=== PATIENT | female | born 1970 | race Caucasian/White ===

== ENCOUNTER 2018-11-20 03:25 | Emergency (ER) | payer OTHER ==
[~2018-11-20] VITALS: Ht 154.9 cm; Wt 57.2 kg
[2018-11-20 03:29] VITALS: Ht 154.9 cm; Wt 57.2 kg
[2018-11-20] MEDS ORDERED: KETOROLAC 30 MG INJ IM STA (04:45)
[2018-11-20] MEDS ORDERED: IBUP-1542 PO (05:54)
[2018-11-20] MEDS ORDERED: NITR-58 PO (05:55)
[2018-11-20 06:03] VITALS: BP 90/49; PULSE 64; RESP 18
--- NOTE | 2018-11-20 07:35 | ERD ---
ER Documentation Chief Complaint Chief Complaint ABD PAIN NO N/V/D/C X1DAY HPI 48-year-old female presents with abdominal pain times 1 day. Pain is noted to be in the right upper quadrant, rated 8 out of 10, described as sharp. Patient took some Tylenol at home without relief. She denies any nausea or vomiting. She denies fevers or chills. She denies diarrhea last bowel movement was 1 day ago which was noted to be normal. There is no blood or dark stools noted. Patient has had prior similar symptoms. Past surgical history of 2 C-sections. She still has her gallbladder in. ROS All systems reviewed and are negative except as per history of present illness. Medications Home Meds Active Scripts Nitrofurantoin Monohyd Macrocr* (Macrobid*) 100 Mg Capsr, 100 MG PO BID for uti for 5 Days, #10 CAP Prov:LOGAN ROBLES 11/20/18 Ibuprofen* (Motrin*) 600 Mg Tab, 600 MG PO Q6H PRN for PAIN, #30 TAB Prov:LOGAN ROBLES 11/20/18 Allergies Allergies: Coded Allergies: No Known Allergy (Unverified , 11/28/18) PMhx/Soc Medical and Surgical Hx: pt denies Medical Hx, pt denies Surgical Hx History of Surgery: Yes ( x2) Hx Miscellaneous Medical Probl: Yes (arthritis) Hx Alcohol Use: No Hx Substance Use: No Hx Tobacco Use: No Physical Exam Vitals Vital Signs Date Temp Pulse Resp B/P (MAP) Pulse Ox O2 O2 Flow FiO2 Time Delivery Rate 11/20/18 98.9 64 18 90/49 (63) 99 Room Air 06:03 11/20/18 97.8 82 18 124/58 99 03:29 (80) Physical Exam Const: No acute distress Resp: Clear to auscultation bilaterally Cardio: Regular rate and rhythm, no murmurs Abd: Soft, non distended. Normal bowel sounds, tenderness palpation of the right upper quadrant, no McBurney's point tenderness, no Leong sign, no rebound or guarding noted Skin: No petechiae or rashes Back: No midline or flank tenderness Ext: No cyanosis, or edema Neur: Awake and alert Psych: Normal Mood and Affect Results 24 hrs Laboratory Tests Test 11/20/18 04:55 1/23/19 05:03 White Blood Count 8.4 10^3/ul Red Blood Count 4.96 10^6/ul Hemoglobin 13.9 g/dl Hematocrit 42.8 % Mean Corpuscular Volume 86.3 fl Mean Corpuscular Hemoglobin 28.0 pg Mean Corpuscular Hemoglobin Concent 32.5 g/dl Red Cell Distribution Width 12.1 % Platelet Count 169 10^3/UL Mean Platelet Volume 10.6 fl Immature Granulocytes % 0.400 % Neutrophils % 72.9 % Lymphocytes % 18.4 % Monocytes % 6.4 % Eosinophils % 1.7 % Basophils % 0.2 % Nucleated Red Blood Cells % 0.0 /100WBC Immature Granulocytes # 0.030 10^3/ul Neutrophils # 6.2 10^3/ul Lymphocytes # 1.6 10^3/ul Monocytes # 0.5 10^3/ul Eosinophils # 0.1 10^3/ul Basophils # 0.0 10^3/ul Nucleated Red Blood Cells # 0.0 10^3/ul Urine Color YELLOW Urine Clarity SLIGHTLY CLOUDY Urine pH 5.0 Urine Specific [place] 1.019 Urine Ketones NEGATIVE mg/dL Urine Nitrite NEGATIVE mg/dL Urine Bilirubin NEGATIVE mg/dL Urine Urobilinogen NEGATIVE mg/dL Urine Leukocyte Esterase 3+ Brook/ul Urine Microscopic RBC 4 /HPF Urine Microscopic WBC 60 /HPF Urine Squamous Epithelial Cells FEW /HPF Urine Transitional Epithelial Cells FEW /HPF Urine Bacteria FEW /HPF Urine Mucus FEW /HPF Urine Hemoglobin NEGATIVE mg/dL Urine Glucose NEGATIVE mg/dL Urine Total Protein NEGATIVE mg/dl Sodium Level 143 mmol/L Potassium Level 5.0 mmol/L Chloride Level 102 mmol/L Carbon Dioxide Level 30 mmol/L Anion Gap 11 Blood Urea Nitrogen 13 mg/dl Creatinine 0.67 mg/dl Est Glomerular Filtrat Rate mL/min > 60 mL/min Glucose Level 112 mg/dl Calcium Level 10.0 mg/dl Total Bilirubin 0.9 mg/dl Direct Bilirubin 0.00 mg/dl Indirect Bilirubin 0.9 mg/dl Aspartate Amino Transf (AST/SGOT) 125 IU/L Alanine Aminotransferase (ALT/SGPT) 88 IU/L Alkaline Phosphatase 108 IU/L Total Protein 7.3 g/dl Albumin 4.3 g/dl Globulin 3.00 g/dl Albumin/Globulin Ratio 1.43 Lipase 141 U/L POC Beta HCG, Qualitative NEGATIVE Current Medications Medications Dose Sig/Ravinder Start Time Status Last (Trade) Ordered Route PRN Stop Time Admin Dose Reason Admin Ketorolac 30 mg ONCE STAT 11/20/18 DC 11/20/18 Tromethamine IM 04:45 05:14 (Toradol) 11/20/18 04:47 Procedures/MDM Medical Decision Making: Differential diagnosis includes but not limited to acute gastritis, acute gastroenteritis, appendicitis, cholecystitis, pancreatitis. Patient appeared well on physical exam. Nontoxic appearing. Abdominal examination showed right upper quadrant tenderness. There is no guarding rebound noted. Labs: CBC showed no anemia, no elevated WBC to suggest infection CMP showed no electrolyte abnormalities, there was normal kidney function, mild transaminitis noted. Patient advised to follow with primary care physician. Lipase was normal Urine was negative UA was consistent with a urinary tract infection. Imaging: Gallbladder ultrasound showed gallstones, no biliary duct dilatation, the right kidney and liver were noted to be unremarkable. Patient likely has biliary colic. Patient had normal bilirubin levels. There is low suspicion for an acute abdomen at this point. ED course: Patient was given Toradol. Symptoms improved with treatment. Prescription(s): Patient given prescription for antibiotics for urinary tract infection and ibuprofen. Patient advised follow-up with primary care physician for referral to general surgery for elective cholecystectomy if her pain continues. Patient advised to follow up with PCP in 1-2 days. Patient advised to return to ED for new or worsening symptoms. Patient stable on discharge from the ED. Disclaimer: Inadvertent spelling and grammatical errors are likely due to EHR/dictation software use and do not reflect on the overall quality of patient care. Also, please note that the electronic time recorded on this note does not necessarily reflect the actual time of the patient encounter. Departure Diagnosis: Primary Impression: Biliary colic Additional Impression: UTI (urinary tract infection) Condition: Fair Patient Instructions: Understanding Urinary Tract Infections (UTIs), Biliary Colic With Gallstone (Confirmed) Referrals: [facility] YOU HAVE RECEIVED A MEDICAL SCREENING EXAM AND THE RESULTS INDICATE THAT YOU DO NOT HAVE A CONDITION THAT REQUIRES URGENT TREATMENT IN THE EMERGENCY DEPARTMENT. FURTHER EVALUATION AND TREATMENT OF YOUR CONDITION CAN WAIT UNTIL YOU ARE SEEN IN YOUR DOCTORS OFFICE WITHIN THE NEXT 1-2 DAYS. IT IS YOUR RESPONSIBILITY TO MAKE AN APPOINTMENT FOR FOLOW-UP CARE. IF YOU HAVE A PRIMARY DOCTOR --you should call your primary doctor and schedule an appointment IF YOU DO NOT HAVE A PRIMARY DOCTOR YOU CAN CALL OUR PHYSICIAN REFERRAL HOTLINE AT IF YOU CAN NOT AFFORD TO SEE A PHYSICIAN YOU CAN CHOSE FROM THE FOLLOWING FORMERLY [facility] [address] [facility] [address] [facility] [address] [facility] [address] [facility] [address] [facility]. [facility]. [address] Additional Instructions: Llame al doctor MAANA y mervat sara STEPHAN PARA DENTRO DE 1-2 SANCHEZ.Dgale a la secretaria que nosotros le instruimos hacer esta stephan.Avise o llame si webb condicin se empeora antes de la stephan. Regresa aqui si peor o no mejor. LOGAN ROBLES DO Nov 20, 2018 07:35
== END 2018-11-20 06:04 | disposition home or self-care (01) ==
LOC: FTE 03:25
DX: K80.50 Calculus of bile duct without cholangitis or cholecystitis without obstruction (principal); N39.0 Urinary tract infection, site not specified
CPT/HCPCS: 36415; 76705; 80053; 81001; 81025; 83690; 85025; 96372; J1885; Z7502

== ENCOUNTER 2019-01-27 06:23 | Day surgery (SDC) | payer OTHER ==
[2019-01-27] VITALS (20 sets, daily range): BP systolic 96–117; BP diastolic 53–63; PULSE 66–88; RESP 9–21; Ht 154.9 cm; Wt 54.2 kg
[~2019-01-27] VITALS: Ht 154.9 cm; Wt 54.2 kg
[~2019-01-27 06:23] MED LIST: IBUP-1542 PO; NITR-58 PO
[2019-01-27] MEDS ORDERED: OMEP20CA16 PO (08:00)
[2019-01-27] MEDS ORDERED: BUPIVACAINE 0.5%/EPI (SDV) 30 ML INJ ONE (08:28)
--- NOTE | 2019-01-27 08:40 | PREAC ---
Date/Time of Note Date/Time of Note DATE: 01/27/19 TIME: 08:39 Anesthesia Eval and Record Evaluation Time Pre-Procedure Interview DATE: 01/27/19 TIME: 08:39 Age 49 Sex female NPO: 8 hrs Preoperative diagnosis gallstones Planned procedure lap choly Past Medical History Past Medical History: Includes GI: GERD Surgery & Anesthesia Issues No known issue Meds Anticoagulation: No Beta Erin within 24 hr: No Reason Beta Erin not given: Pt. not on B-Erin Reported Medications Omeprazole* (Omeprazole*) 20 Mg Capsule.dr, 20 MG PO DAILY, #30 CAP 01/27/19 Discontinued Scripts Nitrofurantoin Monohyd Macrocr* (Macrobid*) 100 Mg Capsr, 100 MG PO BID for uti for 5 Days, #10 CAP Prov:ROBLESLOGAN DO 11/20/18 Ibuprofen* (Motrin*) 600 Mg Tab, 600 MG PO Q6H PRN for PAIN, #30 TAB Prov:ROBLESLOGAN MCCANN 11/20/18 Meds reviewed: Yes Allergies Coded Allergies: No Known Allergy (Unverified , 01/27/19) Allergies Reviewed: Yes Labs/Studies Labs Reviewed: Reviewed by anesthesiologist Result Diagram: 01/27/19 0715 01/27/19 0715 Laboratory Tests 01/27/19 07:15 test: Negative Pre-procedure Exam Last vitals Vital Signs Date Temp Pulse Resp B/P (MAP) Pulse Ox O2 O2 Flow FiO2 Time Delivery Rate 01/27/19 97.8 66 16 117/54 99 07:42 (75) Airway: Adequate mouth opening, Adequate thyromental dist Mallampati: Mallampati III Teeth: Normal Lung: Normal Heart: Normal ASA Physical Status ASA physical status: 2 Emergency: None Pre-operative Attestations Prior to commencing anesthesia and surgery, the patient was re-evaluated, there was verification of: *The patient's identity *The results of appropriate recent lab work and preoperative vital signs *The above evaluation not changing prior to induction *Anesthetic plan, risk benefits, alternative and complications discussed with patient/family; questions answered; patient/family understands, accepts and wishes to proceed. FAY STARK DO Jan 27, 2019 08:40
[2019-01-27] MEDS ORDERED: ROCURONIUM 50 MG INJ ONE (08:43)
[2019-01-27] MEDS ORDERED: PROPOFOL 20 ML ONE (08:43)
[2019-01-27] MEDS ORDERED: ROPIVACAINE 0.5 % 30 ML VIAL ONE (08:44)
[2019-01-27] MEDS ORDERED: LIDOCAINE 1% (MDV) 20 ML INJ ONE (08:44)
[2019-01-27] MEDS ORDERED: MIDAZOLAM 1 MG/ML 2 ML INJ ONE (08:44)
[2019-01-27] MEDS ORDERED: PHENYLephrine (100 MCG/ML) 10ML SYG ONE (08:58)
[2019-01-27] MEDS ORDERED: OXYCODONE/ACETAMINOPHEN (5/325) TAB PO PRN (09:00)
[2019-01-27] MEDS ORDERED: MEPERIDINE 25 MG INJ IV PRN (09:00)
[2019-01-27] MEDS ORDERED: HYDROmorphONE 1 MG/5 ML IV SYRINGE IV PRN ×3 (09:00)
[2019-01-27] MEDS ORDERED: CEFAZOLIN 1 GM INJ ONE (09:06)
[2019-01-27] MEDS ORDERED: ONDANSETRON 4 MG INJ ONE (09:06)
[2019-01-27] MEDS ORDERED: SUGAMMADEX SODIUM 200 MG/2 ML VIAL IV ONE (09:59)
--- NOTE | 2019-01-27 10:11 | OPR ---
Date/Time of Note Date/Time of Note DATE: 01/27/19 TIME: 10:04 Operative Report Procedure Date: Jan 27, 2019 Preoperative Diagnosis 1. Cholelithiasis/chronic cholecystitis Postoperative Diagnosis 1. Cholelithiasis/chronic cholecystitis 2. Peritoneal adhesions Operation/Procedure Performed 1. Laparoscopic cholecystectomy 2. Laparoscopic lysis of adhesions Surgeon see signature line Certified Veterinary Technician John Guardado MD Anesthesia Type: general Anesthesiologist: FAY STARK DO Estimated Blood Loss: minimal Transfusion none Specimen Gallbladder Grafts/Implants none Complications none Pt Condition Post Procedure: stable Disposition: PACU Indications The patient is a 49-year-old female who presented with a 4-month history of intermittent right upper quadrant abdominal pain. The patient had clinical signs and symptoms of chronic cholecystitis and biliary colic which was confirmed via an ultrasound which showed the presence of gallstones. The patient was scheduled for laparoscopic cholecystectomy; possible open as definitive treatment to prevent further sequelae of gallstone disease which include but are not limited to: Gangrenous cholecystitis, choledocholithiasis, gallstone pancreatitis, ascending cholangitis, etc. All risks and benefits of the procedure including but not limited to: Wound infection, excessive bleeding, common bile duct injury, postoperative biliary leak, retained common bile duct stone, injury to intra-abdominal organs, conversion to open procedure, possible need for subsequent surgeries, etc. were all explained to the patient in full detail. She fully understood and wished to proceed with the procedure. Informed consent was therefore obtained. Procedure Description The patient was brought to the operating room and placed supine on the operating table. Bilateral sequential compression devices were placed on both lower extremities. A dose of broad-spectrum perioperative intravenous antibiotics was given. After the induction of smooth general endotracheal anesthesia the patient's abdomen was prepped and draped in the standard surgical fashion. A tap block was performed by the anesthesiologist and will be documented by him separately. After performance of the surgical timeout a 5 mm incision was made in the inferior umbilicus and a Veress needle was used to access the intra- abdominal cavity atraumatically. Pneumoperitoneum was then obtained and the Veress needle was exchanged for a 5 mm trocar through which a 5 mm laparoscope was placed. Three further working ports were then placed a 12 mm port in the sub-xiphoid region and two 5 mm ports in the right upper quadrant. All port sites were anesthetized with 0.25% Marcaine with epinephrine prior to incision. Diagnostic laparoscopy showed adhesions of the omentum to the anterior abdominal wall in the pelvis. Laparoscopic lysis of adhesions were performed taking these down. Using atraumatic graspers the gallbladder was grasped and retracted superiorly and laterally exposing the area of Bourne's pouch. Dissection was begun in this area using a combination of blunt dissection and hook electrocautery. A dilated cystic duct was identified as it entered straight into the neck of the gallbladder. It was dissected free of surrounding tissues and transected using a firing of the laparoscopic SAMI stapler. Dissection was then continued posteriorly. The cystic artery was identified and dissected free of surrounding tissues. It too was clipped proximally and distally x 3 and transected using EndoShears. Critical view of the cystic duct and artery were obtained prior to their transection. The gallbladder was then dissected off the liver bed using electrocautery. Once completely free the gallbladder was placed in an Endo Catch bag and withdrawn through the subxiphoid port site and passed off the field as specimen. Hemostasis was then inspected for and noted to be total. The abdomen was then irrigated with several liters of warm normal saline and the irrigant returned crystal clear. The fascia of the subxiphoid port site was then reapproximated using a akshat-close device. Pneumoperitoneum was then released and all remaining trochars were withdrawn under direct vision. The subcutaneous tissues were irrigated with more warm normal saline. The skin was then reapproximated using 4-0 Monocryl sutures in subcuticular fashion. The incisions were cleaned and Dermabond was applied to the incisions and the patient was awoken from anesthesia and transported to the recovery room in stable condition. All counts were correct at the end of the case x 2. LOGAN DEAN MD Jan 27, 2019 10:11
--- NOTE | 2019-01-27 10:22 | PAC ---
Date/Time of Note Date/Time of Note DATE: 01/27/19 TIME: 10:22 Post-Anesthesia Notes Post-Anesthesia Note Last documented vital signs Vital Signs Date Temp Pulse Resp B/P (MAP) Pulse Ox O2 O2 Flow FiO2 Time Delivery Rate 01/27/19 97.8 66 16 117/54 99 07:42 (75) Activity: WNL Respiratory function: WNL Cardiovascular function: WNL Mental status: Baseline Pain reasonably controlled: Yes Hydration appropriate: Yes Nausea/Vomiting absent: Yes FAY STARK DO Jan 27, 2019 10:22
[2019-01-27] MEDS ORDERED: IBUPROFEN 600 MG TAB PO PRN (10:30)
[2019-01-27] MEDS ORDERED: HYDROCODONE/APAP (5/325) TAB PO PRN ×2 (10:30)
[2019-01-27] MEDS ORDERED: KETOROLAC 30 MG INJ IV PRN (10:30)
[2019-01-27] MEDS ORDERED: morphine 2 MG INJ IV PRN (10:30)
[2019-01-27] MEDS ORDERED: ONDANSETRON 4 MG INJ IV PRN (10:30)
== END 2019-01-27 12:13 | disposition home or self-care (01) ==
LOC: SDS 06:23
PROVIDERS: ATTEND Surgery
DX: K80.10 Calculus of gallbladder with chronic cholecystitis without obstruction (principal)
CPT/HCPCS: 47562; 80048; 84703; 85025; 85610; 85730; 88304; J0690; J1170; J2250; J2370; J2405; J2795; J3010; Z7512; Z7610